=== PATIENT | male | born 1955 | race Caucasian/White ===

== ENCOUNTER 2018-12-07 01:33 | Emergency (ER) | payer MEDICAID, OTHER ==
[~2018-12-07] VITALS: Ht 165.1 cm; Wt 80.9 kg
[~2018-12-07 01:33] MED LIST: CIPR500T4 PO; HYDR-4011 PO; TAMS-14 PO; TRAM50TA2 PO
[2018-12-07 01:35] VITALS: Ht 165.1 cm; Wt 80.9 kg
--- NOTE | 2018-12-07 02:03 | ERD ---
ER Documentation Chief Complaint Chief Complaint unable to urinate since 2100 last night, nausea and vomiting. HPI This is a 63-year-old male with no previous medical problems who presents to the emergency room for evaluation of difficulty with urination for the past 5 hours. According to the patient and the patient's family members he did drink alcohol earlier tonight and was try to urinate however he states he cannot go to the bathroom and states he is having some pain in the lower portion of his abdomen. The patient denies any prostate issues, denies any fevers chills, denies any trauma and came to the ER for evaluation of his symptoms. He denies any aggravating or relieving factors at this time ROS All systems reviewed and are negative except as per history of present illness. Medications Home Meds Active Scripts Hydrocodone/Acetaminophen ([place] 5-325 Tablet) 1 Each Tablet, 1 EACH PO 6 hrs, #10 TAB Prov:QUIANA LOPEZ PA-C 02/20/16 Tramadol HCl (Tramadol HCl) 50 Mg Tablet, 50 MG PO Q6 PRN for PAIN, #20 TAB Prov:Anusha Pierce PA-C 02/16/16 Allergies Allergies: Coded Allergies: No Known Allergy (Unverified , 02/16/16) PMhx/Soc History of Surgery: No Anesthesia Reaction: No Hx Neurological Disorder: No Hx Respiratory Disorders: No Hx Cardiac Disorders: No Hx Psychiatric Problems: No Hx Miscellaneous Medical Probl: Yes (high cholesterol) Hx Alcohol Use: No Hx Substance Use: No Hx Tobacco Use: No Physical Exam Vitals Vital Signs Date Temp Pulse Resp B/P (MAP) Pulse Ox O2 O2 Flow FiO2 Time Delivery Rate 12/07/18 96.6 94 17 133/80 95 01:35 (97) Physical Exam INITIAL VITAL SIGNS: Reviewed by me GENERAL: The patient is well developed and appropriate for usual state of health in no apparent distress HEENT: Pupils equal, round, and reactive to light. EOMI. There is no scleral icterus. NECK: C-spine is soft and supple, there is no meningismus. There is no cervical lymphadenopathy. LUNGS: Clear to auscultation bilaterally. There are no rales, wheezes or rhonchi. HEART: Regular rate and rhythm, no murmurs, clicks, rubs or gallops. ABDOMEN: Suprapubic tenderness to palpation, otherwise soft, non-tender, non- distended. There are bowel sounds in all four quadrants. No rebound or guarding. EXTREMITIES: There is no peripheral cyanosis or edema. No focal swelling or erythema. NEUROLOGICAL: The patient moves all four extremities with 5/5 strength. Cranial nerves II - XII are intact. Normal gait. Alert and oriented SKIN: There is no apparent rash or petechiae. HEME/LYMPHATIC: There is no evidence of excessive bruising or lymphedema. PSYCHIATRIC: The patient does not appear anxious or depressed. Results 24 hrs Laboratory Tests Test 12/07/18 02:48 Bedside Urine pH (LAB) 5.5 Bedside Urine Protein (LAB) 1+ Bedside Urine Glucose (UA) Negative Bedside Urine Ketones (LAB) Negative Bedside Urine Blood 3+ Bedside Urine Nitrite (LAB) Negative Bedside Urine Leukocyte Esterase (L Negative Procedures/MDM This 63-year-old male presents to the ER for evaluation of difficulty with urination. On my exam the patient did have some suprapubic tenderness and distention. A Ceballos catheter was placed and the patient did have over 550 cc of a nonbloody urine output. On my reevaluation the patient is sleeping comfortably at this time, he denies any pain and he has no distention or tenderness to palpation in the area. The patient will be discharged home with a leg bag Ceballos, he would be given referral for urology and was advised to return to the ER in 3 days for Ceballos removal. The patient and his family members verbalized understanding and they do feel comfortable with her plan of care. This patient's POC urine does not show any signs of infection and he stable for discharge Departure Diagnosis: Primary Impression: Acute urinary retention Condition: WISAM Rincon DO Dec 07, 2018 02:03
[2018-12-07 03:18] VITALS: BP 108/86; PULSE 66; RESP 16
== END 2018-12-07 03:20 | disposition home or self-care (01) ==
LOC: E/R 01:33
DX: R33.9 Retention of urine, unspecified (principal)
CPT/HCPCS: 81003

== ENCOUNTER 2018-12-09 13:16 | Emergency (ER) | payer MEDICAID, OTHER ==
[~2018-12-09] VITALS: Ht 165.1 cm; Wt 78.5 kg
[2018-12-09 13:20] VITALS: BP 140/81; PULSE 79; RESP 16; Ht 165.1 cm; Wt 78.5 kg
--- NOTE | 2018-12-09 13:22 | EN ---
Date/Time of Note Date/Time of Note DATE: 12/09/18 TIME: 13:21 ER Progress Note [id number]-old male for recheck on first episode urinary retention and presumed Ceballos catheter removal. Had Ceballos catheter placed 3 days ago. Well-appearing without chest pain, fevers, vomiting. ED 2 appropriate. RIO CHOW MD Dec 09, 2018 13:22
--- NOTE | 2018-12-09 15:21 | ERD ---
ER Documentation Chief Complaint Chief Complaint pt return to get roe removed x 3 days for dysuria HPI 63-year-old male presenting for Roe removal. Patient had a Roe placed 3 days ago due to dysuria and urinary retention. Patient was placed on Flomax and has been taking medications at home. She has not follow-up with urologist. Patient states is never happened before. Denies other medical problems. NKDA. Surgical history denies. Up-to-date on vaccinations. Social history denies ROS All systems reviewed and are negative except as per history of present illness. Medications Home Meds Active Scripts Ciprofloxacin Hcl* (Ciprofloxacin Hcl*) 500 Mg Tablet, 500 MG PO BID for 7 Days, TAB Prov:KAYLYNN MEJIA PA-C 12/09/18 Tamsulosin Hcl* (Flomax*) 0.4 Mg Cap.er.24h, 0.4 MG PO QPM, #10 CAP Prov:WISAM CHILDRESS DO 12/07/18 Hydrocodone/Acetaminophen ([place] 5-325 Tablet) 1 Each Tablet, 1 EACH PO 6 hrs, #10 TAB Prov:QUIANA LOPEZ PA-C 02/20/16 Tramadol HCl (Tramadol HCl) 50 Mg Tablet, 50 MG PO Q6 PRN for PAIN, #20 TAB Prov:Anusha Pierce PA-C 02/16/16 Allergies Allergies: Coded Allergies: No Known Allergy (Unverified , 12/09/18) PMhx/Soc Medical and Surgical Hx: pt denies Medical Hx, pt denies Surgical Hx History of Surgery: No Anesthesia Reaction: No Hx Neurological Disorder: No Hx Respiratory Disorders: No Hx Cardiac Disorders: No Hx Psychiatric Problems: No Hx Miscellaneous Medical Probl: Yes (high cholesterol) Hx Alcohol Use: No Hx Substance Use: No Hx Tobacco Use: No Smoking Status: Never smoker FmHx Family History: No diabetes, No coronary disease, No other Physical Exam Vitals Vital Signs Date Temp Pulse Resp B/P (MAP) Pulse Ox O2 O2 Flow FiO2 Time Delivery Rate 12/09/18 98.1 79 16 140/81 95 13:20 (100) Physical Exam GENERAL: The patient is well-appearing, well-nourished, in no acute distress HEENT: Atraumatic. Conjunctivae are pink. Pupils equal, round, and reactive to light. There is no scleral icterus. Tympanic membranes clear bilaterally. Oropharynx clear. CHEST: Clear to auscultation bilaterally. There are no rales, wheezes or rhonchi. HEART: Regular rate and rhythm. No murmurs, clicks, rubs or gallops. No S3 or S4. ABDOMEN:Soft, nontender and nondistended. Good bowel sounds. No rebound or guarding. No gross peritonitis. No gross organomegaly or masses. BACK: NO CVAT Results 24 hrs Laboratory Tests Test 12/09/18 14:24 Bedside Urine pH (LAB) 5.5 Bedside Urine Protein (LAB) 3+ Bedside Urine Glucose (UA) Negative Bedside Urine Ketones (LAB) Trace Bedside Urine Blood 3+ Bedside Urine Nitrite (LAB) Negative Bedside Urine Leukocyte Esterase (L 1+ Procedures/MDM ER course: Urinalysis checked 1+ leuks noted. Roe removed. Patient is able to urinate. MDM: 63-year-old male presenting with urinary retention. I have low suspicion for pyelonephritis. I have low suspicion for acute abdominal emergency. Patient does have findings consistent with urinary retention however symptoms seem to have improved since his Roe catheter placement 2 days ago. Patient is recommended to follow-up with urology. Patient is told symptoms change or worsen to return immediately to the ER. All questions answered at discharge Departure Diagnosis: Primary Impression: Urinary retention Condition: Stable Patient Instructions: Understanding Urinary Tract Infections (UTIs), Urinary Retention, Male Referrals: QUYEN TORRES MD Additional Instructions: FOLLOW UP WITH YOUR PRIMARY CARE PHYSICIAN TOMORROW.Return to this facility if you are not improving as expected. KAYLYNN MEJIA PA-C Dec 09, 2018 15:21
== END 2018-12-09 15:20 | disposition home or self-care (01) ==
LOC: FTE 13:16
DX: R33.9 Retention of urine, unspecified (principal)
CPT/HCPCS: 81003; 99283